=== PATIENT | male | born 1975 | race Caucasian/White ===

== ENCOUNTER 2017-06-29 10:31 | Emergency (ER) | payer OTHER ==
[2017-06-29 11:21] VITALS: BP 105/65
--- NOTE | 2017-06-29 12:04 | UC ---
General HPI - HPI Summary HPI Summary: 42 yo gentleman c/o progressive worse confusion, memory challenges, episodic chest pain. Memory symptoms present x years, but last 3-4 days has been worse. No current vertigo, but hx thereof. + hx cardiomyopathy, dx'c 2014, cardiac cath -> w/o sign obst coaranry art dz., but with EF 35-40%. Reports episodic chest pain over the last 3-4 days. He thinks this may be associated with dental infection . Note - + hx L facial infection - reports that approx 1 year ago he had an infection from his teeth to his sinus cavity and ear, dizzy at that time. Over the last few days, has had recurrence of dental (upper left teeth and upper R wisdom tooth) pain. L face dysesthesia. No hx dm. + tobacco. Reports hx heavy metal exposure in the years past. B - History of Current Complaint Chief Complaint: UCDentalProblem Stated Complaint: DENTAL PAIN Time Seen by Provider: 06/29/17 11:31 Hx Obtained From: Patient - Allergy/Home Medications Allergies/Adverse Reactions: Allergies Allergy/AdvReac Type Severity Reaction Status Date / Time Ciprofloxacin [From Cipro] Allergy Unknown Verified 06/29/17 11:22 Reaction Details Home Medications: Home Medications Carvedilol TAB* [Coreg TAB*] 3.125 mg PO BID 06/29/17 [History Confirmed ] Lisinopril TAB* [Prinivil TAB 10 MG*] 10 mg PO BEDTIME 06/29/17 [History Confirmed 06/29/17] PMH/Surg Hx/FS Hx/Imm Hx Previously Healthy: No - see hpi Cardiovascular History: Cardiac Disease Other History Of: Negative For: Anticoagulant Therapy - Surgical History Surgical History: Yes Surgery Procedure, Year, and Place: retinal detatchment - Family History Known Family History: Positive: Unknown - Social History Alcohol Use: None Substance Use Type: Marijuana Smoking Status (MU): Current Every Day Smoker Household Exposure Type: Cigarettes Review of Systems Constitutional: Other - see hpi Skin: Negative Eyes: Negative ENT: Other - see hpi Respiratory: Negative Cardiovascular: Chest Pain Gastrointestinal: Negative Genitourinary: Negative Motor: Negative Neurovascular: Other - see hpi Musculoskeletal: Negative Neurological: Other - see hpi Psychological: Negative Is Patient Immunocompromised?: No All Other Systems Reviewed And Are Negative: Yes Physical Exam Triage Information Reviewed: Yes Appearance: Well-Nourished - sitting up. conversing ok. Vital Signs: Initial Vital Signs Temp 98.2 F 06/29/17 11:14 Pulse 72 06/29/17 11:14 Resp 20 06/29/17 11:14 BP 105/65 06/29/17 11:14 Pulse Ox 100 06/29/17 11:14 Vital Signs Reviewed: Yes Eye Exam: Normal - ? left proptosis ENT Exam: Other ENT: Positive: Pharynx normal, TM dull, Other - Left upper maxillary gum area with several white pimple like spots. Teeth with several reconstructions noted. No felicia swelling, although the upper left maxilla is a little red. No trismus perse. Trachea midline. Dental Exam: Other - see above Neck exam: Normal Neck: Positive: Supple, Nontender, No Lymphadenopathy Respiratory Exam: Normal Respiratory: Positive: Chest non-tender, Lungs clear, Normal breath sounds, No respiratory distress Cardiovascular Exam: Normal Cardiovascular: Positive: RRR, No Murmur, Pulses Normal, Brisk Capillary Refill Abdominal Exam: Normal Abdomen Description: Positive: Nontender Musculoskeletal Exam: Normal Neurological Exam: Normal - nonfocal, grossly normal. Except dysesthetic upper left maxillary region. Psychological Exam: Normal - conversing easily and appropriately. He is concerned about increased confusion and memory loss Skin Exam: Normal - see above Course/Dx - Course Course Of Treatment: Reviewed recent imaging, cardiac tests / reports, ancillaries as available. Reviewed cardiac cath 2014. Increasing confusion in the setting of episodic chest pain (none right now) over the last 3-4 days is concerning. Also likely dental infection to what extent is unclear at this time. [Pt wishes to drive to ED. Declines EMS. - Differential Dx - Multi-Symptom Provider Diagnoses: Chest pain. Increased confusion. Dental infection Discharge - Discharge Plan Condition: Stable Disposition: HOME Referrals: Wilbur Veloz MD [Primary Care Provider] - Additional Instructions: go directly to the Emergency Department. Do not stop en route for food / water. Call 911 if problems en route.
--- NOTE | 2017-06-29 12:10 | UC ---
Progress - Progress Note Progress Note: EKG from 11:40am SR at 60bmp, pr 152, QTc 395. RsR in V1 / V2.
[2017-06-30] MEDS ORDERED: Aspirin Low Dose CHEW TAB* 81 MG PO ONE (11:53)
== END 2017-06-29 12:07 | disposition home or self-care (01) ==
LOC: UCEAST 10:31
DX: R07.9 Chest pain, unspecified (principal); R41.0 Disorientation, unspecified; K08.89 Other specified disorders of teeth and supporting structures; I51.9 Heart disease, unspecified; Z72.0 Tobacco use
CPT/HCPCS: 93005; 99212; A9270-GY; G0463

== ENCOUNTER 2017-06-29 12:53 | Observation (INO) | payer OTHER ==
--- NOTE | 2017-06-29 13:50 | RAD ---
INDICATION: Chest pain. COMPARISON: Comparison is made with a prior study from December 02, 2014. TECHNIQUE: A portable view of the chest was obtained. FINDINGS: Cardiac and mediastinal contours appear to be within normal limits. The lungs are hyperinflated and clear. No pleural effusion or pneumothorax is seen. IMPRESSION: NO EVIDENCE FOR ACUTE DISEASE.
[2017-06-29 13:57] LABS: Hematocrit 48 % (42-52); Hemoglobin 16.4 g/dl (14.0-18.0); Mean Corpuscular HGB Conc 34 g/dl (31-36); Mean Corpuscular Hemoglobin 31 pg (27-31); Mean Corpuscular Volume 89 fL (80-94); Mean Platelet Volume 9 um3 (7.4-10.4); Red Blood Count 5.36 10^6/ul (4.0-5.4); Red Cell Distribution Width 14 % (10.5-15); White Blood Count 7.4 10^3/ul (3.5-10.8)
[2017-06-29 14:13] LABS: Albumin 4.4 g/dL (3.2-5.2); BUN/Creatinine Ratio 13.7 (8-20); Calcium 9.2 mg/dL (8.6-10.3); EGFR African American 112.4 (>60); EGFR Non-African American 87.4 (>60); Globulin 2.3 g/dL (2-4); Potassium 3.8 mmol/L (3.5-5.0); Total Bilirubin 1.2 mg/dL (0.2-1.0); Total Protein 6.7 g/dL (6.4-8.9)
[2017-06-29] MEDS ORDERED: Aspirin TAB* 325 MG PO ONE (14:27)
[2017-06-29] MEDS ORDERED: Iohexol 300* (CONTRAST) 10 ML SDV IV ONE (16:19)
[2017-06-29] MEDS ORDERED: Ondansetron INJ* 2 MG/ML VIAL IV PRN (16:56)
[2017-06-29] MEDS ORDERED: Acetaminophen TAB* 325 MG PO PRN (16:56)
--- NOTE | 2017-06-29 17:35 | RAD ---
INDICATION: Dental pain. Evaluate for deep abscess at the mandibular and maxillary regions. COMPARISON: No relevant prior exams available on the [facility] PACS for comparison. TECHNIQUE: Multidetector CT base of the skull through mandible with 75 mL Visipaque 320 IV contrast. Multiplanar reformation. REPORT: Negative for superficial or deep soft tissue plane abscess collection. Unremarkable pharyngeal mucosal space contours. No appreciable soft tissue inflammatory change evident flanking the mandibular or maxillary jaws. Clear paranasal sinuses and mastoid air spaces. Suggestion of a RIGHT scleral buckle unchanged from the February 07, 2013 CT without concern. The orbits are otherwise unremarkable. No periosteal reaction or ill-defined osteolysis evident. Negative for fracture. Negative for osteosclerosis. Normal temporal mandibular joint alignment. IMPRESSION: 1. No evidence for superficial or deep soft tissue plane abscess collection or inflammatory process. 2. No compelling CT evidence for osteomyelitis.
[2017-06-29] MEDS ORDERED: Lisinopril TAB* 10 MG PO SCH (21:00)
[2017-06-29] MEDS ORDERED: Lisinopril TAB* 5 MG PO SCH ×2 (21:35→21:50)
[2017-06-29] MEDS: Carvedilol TAB* 3.125 MG PO SCH (21:51)
--- NOTE | 2017-06-29 22:02 | ED ---
Ana Paula Christianson Thomas, scribed for Cal Garcia MD on 06/29/17 at 1454 . HPI Chest Pain - HPI Summary HPI Summary: The pt is a 42 y/o M referred from Urgent Care c/o chest pain and dental pain. He denies CP in the ED, although he notes intermittent episodes of chest pain that he believes are connected to the use of a mouthwash that was prescribed by his dentist. The dental pain is concentrated to his left upper teeth. Pt additionally c/o left arm pain. He claims to have experienced intermittent confusion for the last few years. PMHx includes CHF. He was had stress tests and cardiac catheterizations. - History of Current Complaint Chief Complaint: EDChestWallPain Time Seen by Provider: 06/29/17 13:19 Hx Obtained From: Patient Onset/Duration: Still Present Timing: Intermittent Current Severity: None Pain Intensity: 0 Pain Scale Used: 0-10 Numeric Chest Pain Location: Diffuse Chest Pain Radiates: Yes Chest Pain Radiates To:: Arm - L Aggravating Factor(s): Other: - Mouthwash aggravates chest pain Alleviating Factor(s): Spontaneous Resolution Associated Signs and Symptoms: Positive: Chest Pain, Other: - L arm pain, dental pain, confusion - Allergy/Home Medications Allergies/Adverse Reactions: Allergies Allergy/AdvReac Type Severity Reaction Status Date / Time Ciprofloxacin [From Cipro] Allergy Unknown Verified 06/29/17 11:22 Reaction Details Home Medications: Home Medications Chlorhexidine MOUTHWASH 0.12%* [Peridex Mouth Wash 0.12%*] 15 ml MT BID [History Confirmed 06/29/17] PMH/Surg Hx/FS Hx/Imm Hx Previously Healthy: No Endocrine/Hematology History: Denies: Hx Anticoagulant Therapy, Hx Blood Disorders, Hx Diabetes Cardiovascular History: Reports: Hx Congestive Heart Failure Denies: Hx Hypertension Respiratory History: Denies: Hx Asthma, Hx Chronic Obstructive Pulmonary Disease (COPD) GI History: Denies: Hx Ulcer Neurological History: Denies: Hx Headaches Comment Only: Other Neuro Impairments/Disorders - multiple hx of concussions Psychiatric History: Denies: Hx Anxiety, Hx Depression - Surgical History Surgery Procedure, Year, and Place: retinal detatchment Infectious Disease History: No Infectious Disease History: Denies: Hx Clostridium Difficile, Hx Hepatitis, Hx Human Immunodeficiency Virus (HIV), Hx of Known/Suspected MRSA, Hx Shingles, Hx Tuberculosis, Hx Known/ Suspected VRE, Hx Known/Suspected VRSA, History Other Infectious Disease, Traveled Outside the [place] in Last 30 Days - Family History Known Family History: Positive: Cardiac Disease - Social History Occupation: Employed Full-time Alcohol Use: None Substance Use Type: Reports: Marijuana Hx Tobacco Use: Yes Smoking Status (MU): Light Every Day Tobacco Smoker Review of Systems Negative: Fever, Chills Negative: Erythema - eyes Positive: Dental Pain. Negative: Sore Throat Positive: Chest Pain Negative: Shortness Of Breath, Cough Negative: Abdominal Pain, Vomiting, Nausea Negative: dysuria, hematuria Positive: Other - L arm pain. Negative: Myalgia, Edema - legs Negative: Rash Neurological: Other - Confusion; NEGATIVE: dizziness All Other Systems Reviewed And Are Negative: Yes Physical Exam - Summary Physical Exam Summary: Constitutional: Well-developed, Well-nourished, Alert. (-) Distressed Skin: Warm, Dry HENT: Normocephalic; Atraumatic Eyes: Conjunctiva normal Neck: Musculoskeletal ROM normal neck. (-) JVD, (-) Stridor, (-) Tracheal deviation Cardio: Rhythm regular, rate normal, Heart sounds normal; Intact distal pulses; The pedal pulses are 2+ and symmetric. Radial pulses are 2+ and symmetric. (-) Murmur Pulmonary/Chest wall: Effort normal. (-) Respiratory distress, (-) Wheezes, (-) Rales Abd: Soft, (-) Tenderness, (-) Distension, (-) Guarding, (-) Rebound Musculoskeletal: (-) Edema Lymph: (-) Cervical adenopathy Neuro: Alert, Oriented x3 Psych: Mood and affect Normal Triage Information Reviewed: Yes Vital Signs On Initial Exam: Initial Vitals Temp Pulse Resp BP Pulse Ox 97.4 F 79 18 119/77 98 06/29/17 12:54 06/29/17 12:54 06/29/17 12:54 06/29/17 12:54 06/29/17 12:54 Vital Signs Reviewed: Yes - [place] Coma Scale Coma Scale Total: 15 Diagnostics - Vital Signs Vital Signs Temp Pulse Resp BP Pulse Ox 06/29/17 13:45 55 99 06/29/17 12:54 97.4 F 79 18 119/77 98 - Laboratory Lab Results: Lab Results 06/29/17 06/29/17 06/29/17 Range/Units 13:42 13:42 13:42 WBC 7.4 (3.5-10.8) 10^3/ul RBC 5.36 (4.0-5.4) 10^6/ul Hgb 16.4 (14.0-18.0) g/dl Hct 48 (42-52) % MCV 89 (80-94) fL MCH 31 (27-31) pg MCHC 34 (31-36) g/dl RDW 14 (10.5-15) % Plt Count 172 (150-450) 10^3/ul MPV 9 (7.4-10.4) um3 Neut % (Auto) 64.0 (38-83) % Lymph % (Auto) 26.6 (25-47) % [place] % (Auto) 6.3 (1-9) % Eos % (Auto) 2.3 (0-6) % Baso % (Auto) 0.8 (0-2) % Absolute Neuts (auto) 4.7 (1.5-7.7) 10^3/ul Absolute Lymphs (auto) 2.0 (1.0-4.8) 10^3/ul Absolute Monos (auto) 0.5 (0-0.8) 10^3/ul Absolute Eos (auto) 0.2 (0-0.6) 10^3/ul Absolute Basos (auto) 0.1 (0-0.2) 10^3/ul Absolute Nucleated RBC 0 10^3/ul Nucleated RBC % 0.1 Sodium 137 (133-145) mmol/L Potassium 3.8 (3.5-5.0) mmol/L Chloride 107 (101-111) mmol/L Carbon Dioxide 26 (22-32) mmol/L Anion Gap 4 (2-11) mmol/L BUN 13 (6-24) mg/dL Creatinine 0.95 (0.67-1.17) mg/dL Est GFR ( Amer) 112.4 (>60) Est GFR (Non-Af Amer) 87.4 (>60) BUN/Creatinine Ratio 13.7 (8-20) Glucose 99 (70-100) mg/dL Lactic Acid 0.6 (0.5-2.0) mmol/L Calcium 9.2 (8.6-10.3) mg/dL Total Bilirubin 1.20 H (0.2-1.0) mg/dL AST 15 (13-39) U/L ALT 11 (7-52) U/L Alkaline Phosphatase 48 (34-104) U/L Troponin I 0.00 (<0.04) ng/mL Total Protein 6.7 (6.4-8.9) g/dL Albumin 4.4 (3.2-5.2) g/dL Globulin 2.3 (2-4) g/dL Albumin/Globulin Ratio 1.9 (1-3) Result Diagrams: 06/29/17 13:42 06/29/17 13:42 Lab Statement: Any lab studies that have been ordered have been reviewed, and results considered in the medical decision making process. - Radiology CXR Xray Interpretation: No Acute Changes - No evidence for acute disease. ED physician has reviewed this report and agrees. Radiology Interpretation Completed By: Radiologist - EKG 11:40 Cardiac Rate: NL EKG Rhythm: Sinus Rhythm EKG Interpretation: 60 BPM. Normal EKG. Re-Evaluation - Re-Evaluation First Eval Re-Evaluation Time: 16:03 Change: Unchanged Comment: The patient says that he does not trust the medical team here. He wants to make sure that his dental symptoms are being taken seriously. He requests an BERNADINE of the face. We agreed that he would get a CT of the face due to an implant somewhere on his face. Chest Pain Course/Dx - Course Course Of Treatment: I reviewed a cardiac catheterization from June 2015. It shows normal coronaries and an ejection fraction of 35%. Assessment/Plan: The pt is a 42 y/o M referred from Urgent Care c/o chest pain and dental pain. He denies CP in the ED, although he notes intermittent episodes of chest pain that he believes are connected to the use of a mouthwash that was prescribed by his dentist. The dental pain is concentrated to his left upper teeth. Pt additionally c/o left arm pain. He claims to have experienced intermittent confusion for the last few years. PMHx includes CHF. He was had stress tests and cardiac catheterizations. In the ED course the patient was given ASA. Bloodwork was obtained and it shows bilirubin 1.20. EKG shows sinus rhythm at 60 BPM. CXR shows no acute disease. I reviewed a cardiac catheterization from June 2015. It shows normal coronaries and an ejection fraction of 35%. The patient appears to be somewhat tangential, although I am concerned about this report of chest pain that radiates to his left arm, especially given his history of smoking, hypertension, and cardiomyopathy. The patient is diagnosed with chest pain, unspecified. The patient will be admitted by Dr. Coreas, hospitalist, for further workup and management. Patient is agreeable to this plan. - Diagnoses Provider Diagnoses: Chest pain, unspecified - Provider Notifications Discussed Care Of Patient With: Germaine Coreas Time Discussed With Above Provider: 14:51 Instructed by Provider To: Other - I consulted with Dr. Coreas, hospitalist, who will accept the patient for admission to [facility]. Discharge - Discharge Plan Condition: Fair Disposition: ADMITTED TO [facility] The documentation as recorded by the Ana Paula randall Thomas accurately reflects the service I personally performed and the decisions made by me, Cal Garcia MD.
--- NOTE | 2017-06-29 22:36 | HP ---
CC: Dr. Mckenna; Dr. Tanner * HISTORY AND PHYSICAL: DATE OF ADMISSION: 06/29/17 PRIMARY CARE PHYSICIAN: Dr. Mckenna. MAINTENANCE MANAGER: Dr. Tanner. ATTENDING PHYSICIAN: Germaine Coreas MD * (report dictated by Malou Bolanos NP). CHIEF COMPLAINT: Chest pain. HISTORY OF PRESENT ILLNESS: The patient is a 42-year-old male with a past medical history significant for non-ischemic cardiomyopathy, last ejection fraction 35% to 40% in July 2015, who presented to the emergency room with a complaint of chest pain. The patient states for the past week he has lost the taste in his mouth and is complaining of dental pain. The patient went to see a dentist who gave him chlorhexidine mouthwash. The patient states that whenever he would use the mouthwash, he would develop chest pain. He took a break from using the mouthwash and the pain got better. This morning, he used it again and the pain came back. The patient states the pain radiates down his arm. The patient states he has been seeing a dentist at [facility], who was planning to send him to an oral surgeon to have teeth removed. In 2014, the patient states that he had an abscess that no one recognized, and as a result, it damaged his heart. Upon review of notes in [facility], there is documentation that the patient was having episodes of chest pain and had been at [facility] and found to have a low ejection fraction. At that point, he was referred to Dr. Tanner. The patient went on to have a left heart cardiac catheterization that showed nonischemic cardiomyopathy. Since then the patient had followed for a short period of time and then subsequently was a no show. His last stress test was in July 2016. This is a stress echocardiogram and the patient was not able to exercise to maximum stress. The patient requested imaging to look for an abscess that he states this was the cause of his depressed ejection fraction. The patient was placed on observation for chest pain. PAST MEDICAL HISTORY: Nonischemic cardiomyopathy, tooth abscess, hernia. HOME MEDICATIONS: 1. Coreg 3.125 mg oral twice daily. 2. Lisinopril 10 mg oral daily. 3. Chlorhexidine swish and spit. ALLERGIES: CIPRO. FAMILY HISTORY: The patient's maternal grandparents with history of diabetes. SOCIAL HISTORY: The patient currently smokes half a pack of cigarettes a day. Denies any alcohol use. 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 Surrogate decision maker will be his mother, Mary Cintron, if he is unable to make decision for himself. REVIEW OF SYSTEMS: I performed a 14-point review of systems. All the pertinent positives and negatives were mentioned in the history of present illness. Remaining review of systems are negative. PHYSICAL EXAMINATION GENERAL APPEARANCE: The patient is alert, pleasant, appeared to be in no apparent distress. VITAL SIGNS: Temperature 97.4, heart rate 60, respiratory rate 16, blood pressure 134/83, oxygen saturation 99%. HEAD, EYES, EARS, NOSE, AND THROAT: Normocephalic/atraumatic. Pupils are equal and reactive to light. Extraocular movements are intact. NECK: Neck was supple. There is no lymphadenopathy, erythema, or swelling noted related to the areas of dental pain. On visual inspection of the mouth, there were no obvious abscesses seen. RESPIRATORY: There was no accessory muscle use. Lungs are clear to auscultation. CARDIAC: S1, S2 were crisp. There were no murmurs, rubs, or gallops heard. Rate and rhythm were regular. ABDOMEN: Soft, nontender, nondistended. There are bowel sounds x4. MUSCULOSKELETAL: There is no clubbing or cyanosis noted. The patient exhibited equal strength in all extremities. NEURO: Cranial nerves II through XII are intact. The patient moves all extremities. Lower extremities were intact to light touch. PSYCH: The patient is alert and oriented x3. SKIN: There were no rashes or abnormalities seen. LABORATORY DATA: Sodium 137, potassium 3.8, chloride 107, CO2 26, BUN 13, creatinine 0.95, glucose 99, lactic acid 0.6, calcium 9.2. Bilirubin 1.2. Liver function tests within normal limits. First troponin 0. White blood cell count 7.4, hemoglobin 16.4, hematocrit 48, platelet count 172. EKG is sinus rhythm rate of 60. Chest x-ray shows no evidence for acute disease. CT of the maxillofacial area is pending. IMPRESSION: This is a 42-year-old male with a history of nonischemic cardiomyopathy who presented to the emergency room complaining of dental pain as well as atypical left-sided chest pain. The patient will be placed on observation for chest pain. ASSESSMENT AND PLAN: 1. Chest pain. The patient will have serial troponins and will be placed on telemetry. He will have a repeat EKG in the morning. As the patient was unable to exercise to maximum during his stress echo, he will have a chemical nuclear stress test tomorrow. The patient will continue daily aspirin, Coreg and lisinopril. Fasting lipid profile will be rechecked in the morning. 2. Dental pain. Given the patient's past history of abscess, he is concerned about the presence of a new abscess. Currently, there are no signs of infection but given the pain, we will get a CT maxillofacial to assess for any abscess. If there is, the patient will be started on antibiotics and referred outpatient for oral surgeon. 3. History of nonischemic cardiomyopathy. The patient will continue Coreg and lisinopril. 4. Fluids, electrolytes, and nutrition: Heart-healthy diet. No caffeine. 5. Code status is full. 6. DVT prophylaxis: The patient is low risk. He will be encouraged to ambulate. TIME SPENT: Time for this admission was 50 minutes, and 25 minutes was spent with the patient discussing medications, history and the events leading up to his arrival in the emergency room. Reviewed by MALOU BOLANOS NP 06/29/2017 1130 [id number]/CPS #: [id number] EMILIANO
[2017-06-29] MEDS ORDERED: Mouth Piece, Nicotine* 1 EACH CARTRIDGE INH ONE (23:22)
[2017-06-29] MEDS ORDERED: Nicotine Inhaler* 10 MG AMP INH PRN (23:22)
[2017-06-29] MEDS ORDERED: Mouth Piece, Nicotine* 1 EACH CARTRIDGE ONE (23:31)
[2017-06-30] MEDS ORDERED: Aspirin Low Dose CHEW TAB* 81 MG PO SCH (09:00)
[2017-06-30] MEDS ORDERED: Nicotine PATCH 21 MG/24 HR* PATCH TRANSDERM SCH (09:00)
[2017-06-30] MEDS: Carvedilol TAB* 3.125 MG PO SCH (11:13)
--- NOTE | 2017-06-30 11:49 | RAD ---
Edited for charges. INDICATION: Cardiomyopathy COMPARISON: None TECHNIQUE: A single day SPECT protocol was utilized. Rest images were acquired following the intravenous injection of 10.4 millicuries of technetium 99m tetrofosmin. Pharmacologic stress images were acquired following the intravenous administration of 25.5 millicuries of technetium 99m tetrofosmin. FINDINGS: There are no defects of the stress-induced or fixed nature. The cardiac chamber size is normal. There are no wall motion abnormalities. The ejection fraction is calculated at 63 percent stress. IMPRESSION: NO DEFECTS OF A STRESS-INDUCED OR FIXED NATURE. NORMAL WALL MOTION AND CONTRACTILITY. ASSESSMENT: LOW-RISK Based on imaging criteria from ACC/AHA 2002 Guideline Update for the Management of Patients With Chronic Stable Angina Table 23. Noninvasive Risk Stratification. MTDD
[2017-06-30 12:16] VITALS: BP 120/73
--- NOTE | 2017-06-30 12:25 | DCNOTE ---
Subjective Date of Service: 06/30/17 Interval History: Patient seen and examined at bedside. Patient reports no further episodes of chest pain. Tolerated stress test without difficulty. Family History: Unchanged from Admission Social History: Unchanged from Admission Past Medical History: Unchanged from Admission Objective Active Medications: Acetaminophen (Tylenol Tab*) 650 mg PO Q4H PRN Aspirin (Aspirin Low Dose Tab*) 81 mg PO DAILY [facility] Carvedilol (Coreg Tab*) 3.125 mg PO BID [facility] Lisinopril (Prinivil Tab*) 2.5 mg PO DAILY@2100 [facility] Nicotine (Nicotine Inhaler*) 10 mg INH Q2H PRN Nicotine (Nicotine Patch 21 Mg/24 Hr*) 1 patch TRANSDERM DAILY [facility] Ondansetron HCl (Zofran Inj*) 4 mg IV Q6H PRN Pharmacy Profile Note (Nicotine Patch Removal Note*) 1 note FOLLOW UP 2100 [facility] Vital Signs Temp Pulse Resp BP Pulse Ox 98.7 F 49 16 120/73 98 06/30/17 11:28 06/30/17 11:28 06/30/17 11:28 06/30/17 11:28 06/30/17 11:28 Oxygen Devices in Use Now: None Appearance: sitting up in bed, NAD Eyes: No Scleral Icterus, PERRLA Ears/Nose/Mouth/Throat: NL Teeth, Lips, Gums Neck: NL Appearance and Movements; NL JVP Respiratory: Symmetrical Chest Expansion and Respiratory Effort, Clear to Auscultation Cardiovascular: NL Sounds; No Murmurs; No JVD, RRR Abdominal: NL Sounds; No Tenderness; No Distention Extremities: No Edema Skin: No Rash or Ulcers Neurological: Alert and Oriented x 3, NL Muscle Strength and Tone Lines/Tubes/Other Access: Clean, Dry and Intact Peripheral IV Nutrition: Taking PO's Result Diagrams: 06/29/17 13:42 06/29/17 13:42 Additional Lab and Data: . Assess/Plan/Problems-Billing Pt is a 42 y/o M w/ hx of non-ischemic cardiomyopathy who presented to the ER w / the c/o of dental and chest pain. - Patient Problems (1) Chest pain (2) Non-ischemic cardiomyopathy (3) Pain, dental (4) DVT prophylaxis (5) Full code status Status and Disposition: OBV for chest pain. Stable to be discharged home. Please see dictated summary.
[2017-06-30] MEDS ORDERED: Regadenoson* 0.4 MG/5 ML SYRINGE ONE (13:28)
[2017-06-30] MEDS ORDERED: Nicotine Patch Removal NOTE FOLLOW UP SCH (21:00)
--- NOTE | 2017-07-01 05:05 | DS ---
CC: Dr. Mckenna; Dr. Tanner * DISCHARGE SUMMARY: DATE OF ADMISSION: 06/29/17 DATE OF DISCHARGE: 06/30/17 PRIMARY CARE PHYSICIAN: Dr. Mckenna. CABLE CUTTER AND SWAGER: Dr. Tanner. ATTENDING PHYSICIAN: Germaine Coreas MD * (report dictated by Geri Bolanos NP). PRIMARY DIAGNOSES: 1. Chest pain. 2. Dental pain. SECONDARY DIAGNOSES: 1. History of nonischemic cardiomyopathy. 2. Tooth abscess. STUDIES WHILE IN THE HOSPITAL: 1. CT maxillofacial without contrast, no evidence for superficial or deep soft tissue plane abscess, collection, or inflammatory process. No compelling CT evidence for osteomyelitis. 2. 06/29/17 chest x-ray, no evidence for acute disease. 3. Nuclear cardiac stress test, no defects of the stress induced or fixed nature, normal wall motion and contractility, ejection fraction is calculated 63 % at stress. MEDICATIONS AT THE TIME OF DISCHARGE: Changed medications: 1. Decreased lisinopril to 5 mg oral daily. 2. Coreg 3.125 mg oral daily. 3. Chlorhexidine swish and spit. HISTORY OF PRESENT ILLNESS AND HOSPITAL COURSE: Mr. Cintron is a 42-year-old male with past medical history significant for nonischemic cardiomyopathy, last ejection fraction measured in July 2015 of 35% to 40% who presented to the emergency room with complaints of chest pain and dental pain. The patient states that historically he had an undiagnosed abscess, which caused him develop severe heart dysfunction. The patient has been seen at [facility] and they are planning to perform extractions in the near future. In the emergency room, the patient was requesting a CT of his face for dental pain to assess for abscess, this was negative. Subsequently, the patient agreed to have a cardiac evaluation, was placed on the telemetry floor and ruled out for acute coronary syndrome. The patient had negative troponins, had a normal fasting lipid profile and had a repeat EKG this morning that showed normal sinus rhythm with no abnormalities. The patient subsequently underwent chemical nuclear cardiac stress test that showed no perfusion defect and improved ejection fraction around 68% at stress. At this point, the patient was stable for discharge home. Vitals are as follows, temperature 98.7, heart rate 49, respiratory rate 16, blood pressure 120/73, oxygen saturation 98%. The patient's blood pressure was running on the lower side, hence lisinopril will be decreased from 10 mg to 5 mg. DISCHARGE PLAN: The patient will follow up with Dr. Mckenna within the next 7 to 10 days. If blood pressure continues to be low, lisinopril could be decreased again. Although the patient was discharged from Dr. Tanner's practice , a followup transthoracic echocardiogram would be helpful to better assess the patient's current heart function. Subsequently, the patient may not need his Coreg and lisinopril anymore. I discussed with the patient and he should continue his followup with [facility] and have the painful teeth extracted as soon as possible. If the patient has any signs of infection including high fever or significant increase in dental pain, he should come to the emergency room. I reviewed these instructions with the patient. He is agreeable with his discharge today. This is a summarized report of a complex medical history and hospital stay. For more details, please see the entire medical record. TIME SPENT: Time for this discharge was 60 minutes, and 25 minutes were spent with the patient discussing medications, discharge plan, and followup instructions. CONDITION ON DISCHARGE: Stable. GERI BOLANOS NP [id number]/[facility] #: [id number] EMILIANO
== END 2017-06-30 13:10 | disposition home or self-care (01) ==
LOC: ED 12:53 → MEDTELE 15:26
PROVIDERS: ADMIT Internal Medicine; ATTEND Internal Medicine
DX: R07.9 Chest pain, unspecified (principal); K08.89 Other specified disorders of teeth and supporting structures; I42.9 Cardiomyopathy, unspecified; Z88.1 Allergy status to other antibiotic agents; F17.210 Nicotine dependence, cigarettes, uncomplicated; Z79.899 Other long term (current) drug therapy
CPT/HCPCS: 36415; 70487; 71010; 78452; 80053; 80061; 83605; 84484; 85025; 93005; 93017; 99283; A9270-GY; A9502; G0378; J2785; Q9967

== ENCOUNTER 2018-03-01 11:25 | Emergency (ER) | payer OTHER ==
[2018-03-01 11:43] VITALS: BP 108/74
--- NOTE | 2018-03-01 12:41 | UC ---
Dental HPI - HPI Summary HPI Summary: 42 y/o male presents to the urgent care c/o front upper jaw pain and infected since yesterday. Pt reports he had a root canal done n that tooth about 20 years ago. He states dental procedure was not done well and he end up w/ heart failure. He is very prone to have dental abscess on that area and when symptoms star he need to immediately take ABx. He call [facility] today, but couldn't get a sooner appt, so he was advised to come to urgent care for ABx Tx. He has appt tomorrow. Pain is mild 1/10 at touch. Pt denies fever, trismus, LORD, SOB, chest pain, abdominal pain, N/V/D. - History of Current Complaint Chief Complaint: UCGeneralIllness Stated Complaint: DENTAL PAIN Time Seen by Provider: 03/01/18 12:39 Hx Obtained From: Patient Onset/Duration: Gradual Onset, Lasting Days - yesterday, Still Present Severity: Mild Pain Intensity: 1 Pain Scale Used: 0-10 Numeric Aggravating Factor(s): Chewing Alleviating Factor(s): OTC Meds - Allergies/Home Medications Allergies/Adverse Reactions: Allergies Allergy/AdvReac Type Severity Reaction Status Date / Time chlorhexidine Allergy Unknown Verified 03/01/18 11:44 Reaction Details ciprofloxacin [From Cipro] Allergy Unknown Verified 03/01/18 11:44 Reaction Details PMH/Surg Hx/FS Hx/Imm Hx Previously Healthy: Yes Cardiovascular History: Congestive Heart Failure Psychological History: Anxiety Other History Of: Negative For: Anticoagulant Therapy - Surgical History Surgical History: Yes Surgery Procedure, Year, and Place: retinal detatchment - Family History Known Family History: Positive: Unknown, Cardiac Disease - Social History Occupation: Employed Full-time Lives: With Family Alcohol Use: None Substance Use Type: Marijuana Substance Use Comment - Amount & Last Used: moderate use Smoking Status (MU): Light Every Day Tobacco Smoker Type: Cigarettes Amount Used/How Often: 1/2-1 pack day Have You Smoked in the Last Year: Yes Household Exposure Type: Cigarettes Review of Systems Constitutional: Negative Skin: Negative Eyes: Negative ENT: Dental Pain - and swelling on the left uppwer fronatl teeth Respiratory: Negative Cardiovascular: Negative Gastrointestinal: Negative Genitourinary: Negative Motor: Negative Neurovascular: Negative Musculoskeletal: Negative Neurological: Negative Psychological: Negative Is Patient Immunocompromised?: No All Other Systems Reviewed And Are Negative: Yes Physical Exam - Summary Physical Exam Summary: Vital Signs Reviewed: Yes General: well developed. well nourished male sitting in the examining table w/o any apparent distress Eyes: Positive: Conjunctiva Clear - PERRLA, EOMI, fundi grossly normal ENT: Positive: Normal ENT inspection, Hearing grossly normal, Pharyngeal erythema, TMs normal, Uvula midline. Negative: Tonsillar swelling, Tonsillar exudate, Trismus Dental: Positive: Percussion Tenderness @ - incisive #11, , Abscess @ - above tooth 11, Cervical Lymphadenopathy - B/L anterior, Neck: Positive: Supple, Nontender Respiratory: Positive: Chest non-tender, Lungs clear, Normal breath sounds, No respiratory distress Cardiovascular: Positive: RRR, No Murmur, Pulses Normal, Brisk Capillary Refill Abdomen Description: Positive: Nontender, No Organomegaly, Soft. Negative: CVA Tenderness (R), CVA Tenderness (L) Bowel Sounds: Positive: Present Musculoskeletal: Positive: Strength Intact, ROM Intact, No Edema Neurological Exam: Normal Psychological Exam: Normal Skin Exam: Normal Triage Information Reviewed: Yes Vital Signs: Initial Vital Signs Temp 98.3 F 03/01/18 11:33 Pulse 74 03/01/18 11:33 Resp 16 03/01/18 11:33 BP 108/74 03/01/18 11:33 Pulse Ox 99 03/01/18 11:33 Dental Complaint Course/Dx - Course Course Of Treatment: 42 y/o male presents to the urgent care c/o front upper jaw pain and infected since yesterday. Pt reports he had a root canal done n that tooth about 20 years ago. He states dental procedure was not done well and he end up w/ heart failure. He is very prone to have dental abscess on that area and when symptoms star he need to immediately take ABx. He call [facility] today, but couldn't get a sooner appt, so he was advised to come to urgent care for ABx Tx. He has appt tomorrow. Pain is mild 1/10 at touch. Pt denies fever, trismus, LORD, SOB, chest pain, abdominal pain, N/V/D.Hx obtained. Pt w/ small dental abscess around tooth #11 on examiantion.Pt with dental abscess on examination. Pt Rx Clindamycin PO . Pt strongly advised to f/u with his appt tomorrow and [facility] further evaluation and treatment. Pt understood and agreed with plan of care. Left the clinic ambulating. - Differential Dx/Diagnosis Differential Diagnosis/Dx: Dental Abscess, Dental Caries, Fractured Tooth, Odontogenic Pain, Peridontic Disease Provider Diagnoses: 1- Dental abscess above tooth # 11 Discharge - Sign-Out/Discharge Documenting (check all that apply): Patient Departure - D/C home - Discharge Plan Condition: Stable Disposition: HOME Prescriptions: Clindamycin Cap(NF) [Clindamycin Cap 300 mg Cap(NF)] 300 mg PO Q6H #40 cap Patient Education Materials: Dental Abscess (ED) Referrals: Art Mckenna MD [Primary Care Provider] - 2 Days Additional Instructions: 1-Please take full course of antibiotic to avoid resistance. 2- Take Ibuprofen PO q6-8hrs after meals to alleviate pain and swelling. 3- F/u with your Dentist at [facility] tomorrow for further management on your dental abscess. - Billing Disposition and Condition Condition: STABLE Disposition: Home
== END 2018-03-01 13:05 | disposition home or self-care (01) ==
LOC: UCEAST 11:25
DX: K04.7 Periapical abscess without sinus (principal); F17.210 Nicotine dependence, cigarettes, uncomplicated; Z88.1 Allergy status to other antibiotic agents
CPT/HCPCS: 99212; G0463

== ENCOUNTER 2018-03-10 10:06 | Emergency (ER) | payer OTHER ==
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
--- NOTE | 2018-03-10 11:04 | ED ---
Throat Pain/Nasal Congestion - HPI Summary HPI Summary: Patient is a 42-year-old male who presents emergency department for ongoing dental pain. Patient states he is accompanied History of numerous dental infections that led to "heart failure." Patient states he was seen at urgent care and started clindamycin about 4 days ago but didn't pain persist. Patient states he now has left ear pain and is concerned infection is spreading systemically. He also notes she's been having ongoing chronic confusion which she contributes to infections. Patient otherwise denies past medical history. He denies fever, chills, vomiting, diarrhea, abdominal pain, cough. Symptoms are mild in severity. Eating and touching affected areas makes symptoms worse. Nothing makes symptoms better. - History of Current Complaint Chief Complaint: EDDentalPain Time Seen by Provider: 03/10/18 10:22 Hx Obtained From: Patient - Allergies/Home Medications Allergies/Adverse Reactions: Allergies Allergy/AdvReac Type Severity Reaction Status Date / Time ciprofloxacin [From Cipro] Allergy Unknown Verified 03/10/18 10:16 Reaction Details PMH/Surg Hx/FS Hx/Imm Hx Previously Healthy: Yes Endocrine/Hematology History: Denies: Hx Anticoagulant Therapy, Hx Blood Disorders, Hx Diabetes Cardiovascular History: Reports: Hx Angina, Hx Congestive Heart Failure Denies: Hx Coronary Artery Disease, Hx Hypercholesterolemia, Hx Hypertension , Hx Myocardial Infarction, Hx Valvular Heart Disease Respiratory History: Denies: Hx Asthma, Hx Chronic Obstructive Pulmonary Disease (COPD) GI History: Denies: Hx Ulcer History: Denies: Hx Renal Disease Sensory History: Denies: Hx Contacts or Glasses, Hx Deafness, Hx Hearing Aid Opthamlomology History: Denies: Hx Contacts or Glasses Neurological History: Denies: Hx Headaches Comment Only: Other Neuro Impairments/Disorders - multiple hx of concussions Psychiatric History: Denies: Hx Anxiety, Hx Depression - Surgical History Surgery Procedure, Year, and Place: retinal detatchment Infectious Disease History: No Infectious Disease History: Denies: Hx Clostridium Difficile, Hx Hepatitis, Hx Human Immunodeficiency Virus (HIV), Hx of Known/Suspected MRSA, Hx Shingles, Hx Tuberculosis, Hx Known/ Suspected VRE, Hx Known/Suspected VRSA, History Other Infectious Disease, Traveled Outside the [place] in Last 30 Days - Family History Known Family History: Positive: Unknown, Cardiac Disease - Social History Occupation: Employed Full-time Lives: Alone Alcohol Use: None Substance Use Type: Reports: Marijuana Substance Use Comment - Amount & Last Used: moderate use Hx Tobacco Use: Yes Smoking Status (MU): Light Every Day Tobacco Smoker Type: Cigarettes Amount Used/How Often: 1/2-1 pack day Have You Smoked in the Last Year: Yes Review of Systems Constitutional: Negative Negative: Fever, Chills Eyes: Negative Positive: Dental Pain, Ear Ache Cardiovascular: Negative Respiratory: Negative Gastrointestinal: Negative Skin: Negative Neurological: Negative All Other Systems Reviewed And Are Negative: Yes Physical Exam Triage Information Reviewed: Yes Vital Signs On Initial Exam: Initial Vitals Temp Pulse Resp BP Pulse Ox 98.1 F 62 18 123/93 98 03/10/18 10:09 03/10/18 10:09 03/10/18 10:09 03/10/18 10:09 03/10/18 10:09 Vital Signs Reviewed: Yes Appearance: Positive: Well-Appearing - Pt. sitting on bed in NAD. Very anxious. Skin: Positive: Warm, Dry Head/Face: Positive: Normal Head/Face Inspection Eyes: Positive: Normal ENT: Positive: Pharynx normal, Other - Right ear exam unremarkable. Left TM is mildly erythematous. No mastiod tenderness.. Negative: Tonsillar swelling, Tonsillar exudate Dental: Positive: Other - Poor dentition throughout. Pain to top left central incisor. Surrounding gums are erythematous. No drainage abscess noted. No swelling under the tongue. No submandibular edema. No trismus. Neck: Positive: Supple, Nontender, No Lymphadenopathy Respiratory/Lung Sounds: Positive: Clear to Auscultation, Breath Sounds Present Cardiovascular: Positive: Normal, RRR Neurological: Positive: Normal, CN Intact II-III Diagnostics - Vital Signs Vital Signs Temp Pulse Resp BP Pulse Ox 03/10/18 10:09 98.1 F 62 18 123/93 98 - Laboratory Lab Statement: Any lab studies that have been ordered have been reviewed, and results considered in the medical decision making process. EENT Course/Dx - Course Course Of Treatment: Pt. presenting for the above complaints. He is afebrile and very well appearing. Pt. was examined by Dr. Garcia as well. He does appear to have a mild otitis media on exam. Pt. insistant he needs to be referred to ENT for his ongoing sinus/ear pain. Dr. Garcia recommends referral to neurology for his ongoing confusion. He has no neuro deficits today. Will refer to the [facility] given his falling out with his PCP. Will switch antibx to augmentin. DC clinda. Pt. understands and agrees with plan. - Diagnoses Provider Diagnoses: Pain, dental, Left otitis media Discharge - Sign-Out/Discharge Documenting (check all that apply): Patient Departure - Discharge Plan Condition: Good Disposition: HOME Prescriptions: Amoxicillin/Clavulanate TAB* [Augmentin TAB 875*] 875 mg PO BID #20 tab Patient Education Materials: How to Stop Smoking (ED), Ear Infection (ED) Referrals: Art Mckenna MD [Primary Care Provider] - [facility] of [facility] [Outside] Nathan Bello MD [Medical Doctor] - Sammie Martin MD [Medical Doctor] - Additional Instructions: Call the [facility] to schedule an appointment Stop Clindamycin and start Augmentin today Stop smoking Tylenol or Motrin for pain as directed Return to ER if symptoms change or worsen - Billing Disposition and Condition Condition: GOOD Disposition: Home
--- NOTE | 2018-03-10 11:12 | ED ---
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 Briefly his history is that for the past couple of weeks he has had left upper jaw pain, tooth pain, and over the past couple of days has had pain radiating from his left jaw into his left ear. He reports no allergy symptoms, he has been on clindamycin for the past 4 days from urgent care. Reports his teeth feel better, but now his ear pain. No fevers, reports sounds somewhat muffled. He reports intermittent confusion that has been occurring to him for years. No headache, no meningismus. Physical exam significant for tympanic membrane with erythema, no bulging. No trismus, no draining abscess. Dentition is poor. I reviewed the medical record, I reviewed my visit note from June 2017 which had identical symptoms including confusion and jaw pain, he did not have an air complaining that time. He apparently had a falling out with his primary care physician who refuses an ENT referral. I'm not sure that an emergent ear nose throat consultation is necessary, but he has requested that we provide him with a phone number to call for an appointment. He is preoccupied with the idea that he could have endocarditis. He has no signs or symptoms of sepsis, no heart murmurs, no fever. The patient is quite anxious appearing, seems to have a tangential thought process. He has close follow-up with a dentist, he is apparently waiting for cardiology clearance again for possible extraction. I did recommend changes in treatment plan to include changing of the penicillin or amoxicillin, also he can have a consultation with a neurologist and ear nose throat doctor, and also our [facility] for facilitation. He apparently also had a falling out with our cardiology office for missed appointments. Course/Dx - Course Course Of Treatment: Procedure note: Procedure name: Smoking cessation counseling. Indication : tobacco use disorder. Details: I spent 5 minutes discussing tobacco cessation with the patient, discussed the oral health benefits of this, also some methods that he can attempt including chewing gum, hypnosis, Chantix - Diagnoses Provider Diagnoses: Pain, dental, Left otitis media Discharge - Sign-Out/Discharge Documenting (check all that apply): Patient Departure - Discharge Plan Condition: Good Disposition: HOME Prescriptions: Amoxicillin/Clavulanate TAB* [Augmentin TAB 875*] 875 mg PO BID #20 tab Patient Education Materials: How to Stop Smoking (ED), Ear Infection (ED) Referrals: [facility] [Outside] Sammie Martin MD [Medical Doctor] - Nathan Bello MD [Medical Doctor] - Art Mckenna MD [Primary Care Provider] - Additional Instructions: Call the [facility] to schedule an appointment Stop Clindamycin and start Augmentin today Stop smoking Tylenol or Motrin for pain as directed Return to ER if symptoms change or worsen - Billing Disposition and Condition Condition: GOOD Disposition: Home
[2018-03-10 11:20] VITALS: BP 112/83
== END 2018-03-10 11:19 | disposition home or self-care (01) ==
LOC: ED 10:06
DX: K08.89 Other specified disorders of teeth and supporting structures (principal); H66.92 Otitis media, unspecified, left ear; Z88.1 Allergy status to other antibiotic agents; F17.210 Nicotine dependence, cigarettes, uncomplicated
CPT/HCPCS: 99282